=== PATIENT | male | born 1960 | race Caucasian/White ===

== ENCOUNTER 2017-02-25 11:59 | Inpatient (IN) ==
[2017-02-25] MEDS ORDERED: ASPIRIN PO STA (12:01)
[2017-02-25 13:02] LABS: MANUAL DIFF NEEDED? NO
[2017-02-25 13:11] LABS: BASO% 0.8 % (0.0-0.8); EOS# 0.05 X1000 (0.0-0.7); EOS% 0.8 % (0.0-10.0); HEMATOCRIT 44.3 % (42.0-52.0); HEMOGLOBIN 15.4 g/dL (14.0-18.0); IMM GRAN# 0.11 X1000 (0.0-0.04); IMM GRAN% 1.8 % (0.0-0.5); LYMPH# 1.53 X1000 (1.2-3.4); LYMPH% 24.8 % (20.5-51.1); MCH 34.5 PG (27-31); MCHC 34.8 g/dL (33-37); MCV 99.3 FL (81-99); MONO# 0.59 X1000 (0.11-0.59); MONO% 9.6 % (1.7-9.3); MPV 9.9 FL (7.4-10.4); NEUT% 62.2 % (42.2-75.2); PLT 190 X1000 (130-400); RBC 4.46 XMIL (4.7-6.1)
[2017-02-25 13:17] LABS: INR 0.96; PROTIME 10.1 Seconds (9.2-11.7); PTT 25.9 Seconds (22.0-36.0)
[2017-02-25 13:19] LABS: AGAP 13; ALBUMIN 3.8 g/dL (3.5-5.0); ALKALINE PHOSPHATASE 68 U/L (32-122); BUN 8 mg/dL (8-22); CALCIUM 8.4 mg/dL (8.8-10.2); CHLORIDE 98 mmol/L (98-107); CK PROFILE 80 U/L (24-204); COSMO 268; GOT 130 U/L (10-34); GPT 155 U/L (10-44); MAGNESIUM 1.8 mg/dL (1.5-2.7); POTASSIUM 3.9 mmol/L (3.5-5.1); SODIUM 135 mmol/L (136-145); TCO2 24 mmol/L (25-35); TOTAL BILIRUBIN 0.26 mg/dL (0.20-1.00); TOTAL PROTEIN 6.5 g/dL (6.3-8.3)
--- NOTE | 2017-02-25 13:32 | Diag Imaging Result Document ---
PROCEDURE NAME: CHEST-1 VIEW - 02/25/2017 PORTABLE CHEST: COMPARISON: No comparison films. FINDINGS: The lungs are well expanded. The heart is not enlarged. The vessels are not distended. No pneumonia. No pleural effusions identified. IMPRESSION: Negative chest.
[2017-02-25] MEDS ORDERED: SODIUM CHLORIDE 0.9% INJ ONE (13:40)
[2017-02-25] MEDS ORDERED: PROTONIX IV ONE (13:40)
--- NOTE | 2017-02-25 14:06 | EKG Report ---
Test Performed on : 02/25/2017 12:00:56 PM Test Reason : SOB Blood Pressure : / mmHG Vent. Rate : 097 BPM Atrial Rate : 097 BPM P-R Int : 128 ms QRS Dur : 086 ms QT Int : 372 ms P-R-T Axes : 074 019 080 degrees QTc Int : 472 ms Normal sinus rhythm. Normal ECG When compared with ECG of 14-JAN-2014 10:25, premature supraventricular complexes. are no longer present T wave amplitude has increased in Inferior leads Nonspecific T wave abnormality no longer evident in Lateral leads Unconfirmed Result
--- NOTE | 2017-02-25 15:18 | Diag Imaging Result Document ---
PROCEDURE NAME: ANGIOGRAM/PULMONARY ARTERIES - 02/25/2017 CTA CHEST: COMPARISON: None available. FINDINGS: There is a poor pulmonary artery contrast bolus, and there is excessive motion artifact due to respiration at the lower lung zones. This decreases the sensitivity for detecting small pulmonary emboli, especially in the higher order branches at the lung bases. Given this limitation, no definite pulmonary embolism can be identified. There is no evidence of aortic dissection or aneurysm. There is no evidence of significant lymphadenopathy. There appears to be some degree of central bronchial mucosal thickening bilaterally suggesting possible bronchitis. The lungs are grossly clear, otherwise. No airspace consolidations are identified. There is no pleural fluid collection or pneumothorax. Limited views of the upper abdomen reveal diffuse hepatic steatosis. There is a prominent left adrenal mass containing gross fat most compatible with an adrenal myelolipoma. It measures approximately 2.9 x 2.6 cm axially. IMPRESSION: 1. Poor contrast bolus and motion artifact limits sensitivity for detection of small pulmonary emboli. However, no definite filling defects are identified to indicate pulmonary embolism, at least centrally. 2. Suggestion of, perhaps, mild central bronchial mucosal thickening, which can be related to bronchitis. 3. Hepatic steatosis. 4. Prominent fatty mass involving the left adrenal gland most compatible with a myelolipoma.
[2017-02-25 15:40] LABS: CK PROFILE 78 U/L (24-204); LIPASE 70 U/L (13-60)
--- NOTE | 2017-02-25 16:03 | ED EKG INTERP ---
This chart was entered by Sabra Welsh Scribe, acting as scribe for Bridger Ortega MD. EKG Interpretation - EKG Time of EKG reading by physician:: 12:00 EKG Read and Signed by:: Bridger Ortega EKG Interpretation (*Must complete 3 of following elements*): Normal Rate: 97 Rhythm: NSR [place]: normal QRS: normal [place] Interval: normal ST Wave: normal This chart was documented by the indicated scribe, (Sabra Welsh Scribe) and accurately reflects the services I performed and decisions made by me, Bridger Ortega MD, as attested by the provider's signature.
[2017-02-25] MEDS ORDERED: NORCO-10 ONE (17:27)
[2017-02-25] MEDS ORDERED: NORCO-10 PO ONE ×2 (17:27→17:28)
[2017-02-25] MEDS ORDERED: 1/2 NS 1,000 ML IV SCH (18:30)
[2017-02-25] MEDS ORDERED: TYLENOL PO PRN (18:30)
[2017-02-25] MEDS ORDERED: NICODERM PATCH TD PRN (18:44)
[2017-02-25] MEDS ORDERED: ZITHROMAX 500 MG/NS 500 MG/250 ML IVPB IV SCH (18:45)
[2017-02-25] MEDS ORDERED: ZITHROMAX 500 MG/NS 500 MG/250 ML IVPB IV ONE (19:00)
[2017-02-25] MEDS: MORPHINE IV PRN (19:48)
--- NOTE | 2017-02-25 20:10 | HISTORY AND PHYSICAL ---
CHIEF COMPLAINT: Chest pain. HISTORY OF PRESENT ILLNESS: A 56 years old male with a past medical history of uncontrolled hypertension, obesity, came to the emergency department with a chief complaint of chest pain that started today at 1 p.m. He described the chest pain as a pressure-like on the left side of the chest, radiated to the left arm with some numbness. This pain was not related with any kind of physical activity. It was associated with nausea, vomiting, and sweating, he also is complaining of mild headache. This pain is exacerbated with deep inspiration, also this patient states that he has been having cough with yellow phlegm for the past 2 days. He denies fever or chills. This patient will be admitted to rule out any acute coronary event. I will place this patient on antibiotics because probably this patient has bronchitis and I will monitor this patient with telemetry. I will get an echocardiogram, a new EKG and also a stress test. REVIEW OF SYSTEMS: 14 point of review of system were reviewed, all negative except the mention in the HPI. PAST MEDICAL HISTORY: Hypertension, he used to be on hypertensive medication but he stopped it 2 years ago. He does not remember the name of the medication. PAST SURGICAL HISTORY: Left knee surgery and he had a nasal septoplasty with bilateral endoscopic nasal exam with anterior Surgicel pack. SOCIAL HISTORY: He states that he drinks mostly on weekends and sometimes not always and when he drinks he drinks 6-pack beer. He is still smoking about half a pack daily since the age of 21. No drugs. ALLERGIES: No known allergies. BLOOD TRANSFUSION: None. MEDICATIONS: Currently he is not on any medications. PHYSICAL EXAM: VITAL SIGNS: Temperature 98.2 degrees, pulse 84, respiratory rate 16, blood pressure 160/106, O2 saturation 97% on room air. HEENT: Head normocephalic. No trauma. PERRLA. NECK: Supple. No JVD. No masses. Central trachea. CHEST: Clear to auscultation. No wheezing. No rales. CARDIOVASCULAR: RRR. No murmurs. No gallops. No rubs. ABDOMEN: Soft, protuberant , obese, nontender. Positive bowel sounds. EXTREMITIES: The left knee looks larger than the right knee probably related with the previous surgery. No clubbing, no cyanosis, no edema. NEUROLOGICAL EXAM: This patient is alert and oriented x3. No focal neurological deficits. LABORATORY: WBC 6.1, hemoglobin 15.4, hematocrit 44.3, platelets 190,000. D- dimer 1. Sodium 135, potassium 3.9, chloride 98, bicarbonate 24, BUN 8, creatinine 0.7, glucose 92, calcium 8.4, magnesium 1.8, AST 130, ALT 155, alkaline phosphatase 68. Troponins negative x2. Albumin 3.8, lipase 70. ASSESSMENT AND PLAN: 1. Chest pain. We need to rule out an acute coronary syndrome. I will ask for a new EKG in the morning to see if there is any change, also I will continue following the troponins. I will also I asked for an echocardiogram since this patient has been having hypertension for a long time and also will monitor this patient on telemetry. For the chest pain I will add morphine. 2. Bronchitis. We have a CT angiogram done in the emergency department that showed mild central bronchial mucosal thickening that can be related to bronchitis and since this patient also has been complaining of cough with yellowish phlegm for the past 2 days I am going to start treating this patient with azithromycin. 3. Hypertension. I will start this patient on medication probably in the morning. I am not going to use any kind of beta mayra or calcium channel mayra because this patient is going to get a stress test done and he already had a study with contrast so probably I will start this patient on ARIANNA inhibitors in the morning. 4. Anxiety. This patient looks anxious. I will put this patient on Xanax low dose twice a day p.r.n. 5. Obesity. This patient has been about diet and exercise, he needs to loose weight. 6. Nicotine dependence. I will prescribe a nicotine patch. He has been highly advised against cigarette smoking and I will do daily cessation education. cc: Clarke Rincon MD MTDD
[2017-02-25] MEDS: XANAX PO PRN (21:42)
[2017-02-25] MEDS: LOVENOX SUBQ SCH (21:42)
[2017-02-25] MEDS ORDERED: PNEUMOVAX 23 IM ONE (23:22)
[2017-02-26] MEDS: MORPHINE IV PRN ×6 (00:18→21:15)
[2017-02-26] MEDS: ZOFRAN IV PRN ×3 (02:48→17:58)
--- NOTE | 2017-02-26 06:56 | EKG Report ---
Test Performed on : 02/26/2017 06:19:28 AM Test Reason : chest pain Blood Pressure : / mmHG Vent. Rate : 073 BPM Atrial Rate : 073 BPM P-R Int : 140 ms QRS Dur : 090 ms QT Int : 418 ms P-R-T Axes : 061 034 073 degrees QTc Int : 460 ms Normal sinus rhythm. Normal ECG When compared with ECG of 25-FEB-2017 12:00, No significant change was found Confirmed by Indira CUNHA, Luan Martinez ([id number]) on 02/26/2017 5:54:00 PM
[2017-02-26 07:19] LABS: MANUAL DIFF NEEDED? NO
[2017-02-26 07:36] LABS: AGAP 11; ALBUMIN 3.7 g/dL (3.5-5.0); ALKALINE PHOSPHATASE 69 U/L (32-122); BUN 11 mg/dL (8-22); CALCIUM 8.2 mg/dL (8.8-10.2); CHLORIDE 101 mmol/L (98-107); COSMO 278; GOT 79 U/L (10-34); GPT 124 U/L (10-44); POTASSIUM 4.4 mmol/L (3.5-5.1); SODIUM 139 mmol/L (136-145); TCO2 27 mmol/L (25-35); TOTAL BILIRUBIN 0.32 mg/dL (0.20-1.00); TOTAL PROTEIN 6.6 g/dL (6.3-8.3)
[2017-02-26 07:46] LABS: BASO% 0.6 % (0.0-0.8); EOS# 0.06 X1000 (0.0-0.7); EOS% 1.1 % (0.0-10.0); HEMATOCRIT 44.8 % (42.0-52.0); HEMOGLOBIN 15.3 g/dL (14.0-18.0); IMM GRAN# 0.05 X1000 (0.0-0.04); IMM GRAN% 0.9 % (0.0-0.5); LYMPH# 1.53 X1000 (1.2-3.4); LYMPH% 28.8 % (20.5-51.1); MCH 34.2 PG (27-31); MCHC 34.2 g/dL (33-37); MCV 100.2 FL (81-99); MONO# 0.45 X1000 (0.11-0.59); MONO% 8.5 % (1.7-9.3); MPV 10.2 FL (7.4-10.4); NEUT% 60.1 % (42.2-75.2); PLT 180 X1000 (130-400); RBC 4.47 XMIL (4.7-6.1)
[2017-02-26] MEDS: XANAX PO PRN (13:00)
--- NOTE | 2017-02-26 15:46 | PROGRESS NOTE ---
DATE: 02/26/2017 SUBJECTIVE: This patient states that he has been having chest pain, but compared with yesterday he feels a little bit better. He is still coughing, and every time he coughs, yellow phlegm is coming up. He denies nausea, vomiting. No diarrhea, no constipation. No fever. No chills. OBJECTIVE: Vital Signs: Temperature 98.1 degrees, pulse 80, blood pressure 158/108, O2 saturation 98% on room air. HEENT: Head normocephalic. No trauma. PERRLA. Neck: Supple. No JVD. No masses. Central trachea. Chest: Clear to auscultation. No wheezing. No rales. Cardiovascular: Regular rhythm and rate. No murmurs. Abdomen: Soft, obese, nontender, nondistended. No hepatosplenomegaly. Extremities: No edema. No clubbing. No cyanosis. Neurological: The patient is alert and oriented x3. No focal neurological deficits. He looks anxious. LABORATORY: WBC 5.3, hemoglobin 15.3, hematocrit 44.8, platelet 180,000. Sodium 139, potassium 4.4, chloride 101. Bicarbonate 27, BUN 11, creatinine 0.8, glucose 115. Calcium 8.2, troponins negative x3. ASSESSMENT AND PLAN: 1. Chest pain. He is still having some chest pain. Sometimes upon palpation, but it is sometimes diffuse. Today he had an echocardiogram and the results are pending. Tomorrow he will get a stress test and if this is negative, I will send this patient home with pain medication and antibiotics. 2. Bronchitis. I will continue with azithromycin/ he is still coughing and having yellow phlegm. We will continue with the same management for now. 3. Hypertension. I will continue to monitor the blood pressure. I do not want to use any kind of beta mayra or calcium channel mayra for now because this patient is getting a stress test done tomorrow. 4. Anxiety. This patient is still looking anxious. I put this patient on Xanax low dose twice a day already. 5. Obesity. This patient has been advised about diet and exercise. He needs to lose some weight. 6. Nicotine dependence. This patient has been highly advised against cigarette smoking, and I will continue with daily cessation education. cc: Clarke Rincon MD
[2017-02-26] MEDS: ZITHROMAX 500 MG/NS 500 MG/250 ML IVPB IV SCH ×2 (17:58→18:14)
[2017-02-26] MEDS: LOVENOX SUBQ SCH (17:58)
--- NOTE | 2017-02-26 18:22 | Extremity Venous Study ---
PROCEDURE NAME: Venous U/S Bilateral Legs - 02/25/2017 This is the bilateral lower extremity venous duplex, and color flow imaging study using the iStorezid E 9 ultrasound System with a 9 L-D transducer. REFERRING PHYSICIAN: Dr. Dobbs from the Emergency Department. A 56-year-old male. MAINTENANCE REPRESENTATIVE: Irma Lai RVT. INDICATIONS: 1. Elevated D-dimer, ICD 10 R94.2. 2. Swelling of the limb, M79.89. FINDINGS: Right common femoral vein and its branches, deep and superficial femoral veins were satisfactorily imaged. They had flow through them and were compressible. Right popliteal vein and the deep veins of the right knee were all compressible and had flow through them. The superficial veins of the right lower extremity were compressible throughout their length. The left common femoral vein and its branches, deep and superficial femoral veins were also satisfactorily imaged. They had flow through them and were compressible. Left popliteal vein and the deep veins below the left knee were all compressible and had flow through them. The superficial veins of the left lower extremity were compressible throughout their length. INTERPRETATION: No evidence of acute deep or superficial venous thrombosis of the bilateral lower extremities. cc: Poornima Nevarez MD
[2017-02-26] MEDS ORDERED: NS 250 ML ONE (18:58)
--- NOTE | 2017-02-26 20:48 | ECHO REPORT ---
ORDER DATE: 02/25/2017 MEASUREMENTS: Septal thickness 1.1. Posterior wall thickness 1.1. Left atrium 3.8. SUMMARY: 1. Technically difficult study due to limited acoustic inequality in this obese patient. Intravenous echo contrast agent Definity was utilized to enhance endocardial definition for assessment of left ventricular systolic function and left ventricular wall motion. 2. The aortic valve is trileaflet and without gross structural abnormality. The aortic valve appears to open normally and peak gradient across the aortic valve by Doppler is less than 10 mmHg. Mitral and tricuspid valves are without gross structural abnormality. Pulmonic valve was not well demonstrated. The aortic root is normal in size. 3. Normal left ventricular dimensions suggested. Estimated left ejection fraction approximately 65%. No regional wall motion abnormality is evident. Doppler suggests grade 1 left ventricular diastolic dysfunction. Left atrium appears mildly enlarged. Right atrium and right ventricle are of normal size with grossly preserved right ventricular systolic performance. 4. No pericardial effusion. 5. Appearance of inferior vena cava suggesting normal central venous pressure. CONCLUSIONS: 1. Technically difficult study. 2. No significant valvular abnormality. 3. Normal left ventricular systolic function without wall motion abnormality evident. 4. Grade 1 left ventricular diastolic dysfunction. 5. Mild left atrial enlargement. cc: MD Clarke Barragan MD
[2017-02-27] MEDS: MORPHINE IV PRN ×6 (01:29→22:54)
[2017-02-27 07:13] LABS: MANUAL DIFF NEEDED? NO
[2017-02-27 07:18] LABS: BASO% 0.2 % (0.0-0.8); EOS# 0.05 X1000 (0.0-0.7); HEMOGLOBIN 14.5 g/dL (14.0-18.0); IMM GRAN# 0.04 X1000 (0.0-0.04); IMM GRAN% 0.8 % (0.0-0.5); LYMPH# 1.32 X1000 (1.2-3.4); LYMPH% 27.2 % (20.5-51.1); MCH 33.6 PG (27-31); MCHC 33.7 g/dL (33-37); MCV 99.8 FL (81-99); MONO# 0.44 X1000 (0.11-0.59); MONO% 9.1 % (1.7-9.3); MPV 10.1 FL (7.4-10.4); NEUT% 61.7 % (42.2-75.2); PLT 153 X1000 (130-400); RBC 4.31 XMIL (4.7-6.1)
[2017-02-27 07:39] LABS: AGAP 11; BUN 12 mg/dL (8-22); CALCIUM 8.5 mg/dL (8.8-10.2); CHLORIDE 102 mmol/L (98-107); COSMO 281; POTASSIUM 4.4 mmol/L (3.5-5.1); SODIUM 141 mmol/L (136-145); TCO2 28 mmol/L (25-35)
[2017-02-27] MEDS ORDERED: LEXISCAN ONE (07:55)
[2017-02-27] MEDS: DUONEB (A & A) INH SCH ×3 (10:13→20:25)
[2017-02-27] MEDS: TESSALON PO PRN (10:26)
[2017-02-27] MEDS: ROCEPHIN 1 GM/NS 1 GM/50 ML IVPB IV SCH (10:26)
[2017-02-27] MEDS: ZOFRAN IV PRN ×2 (10:27→14:51)
--- NOTE | 2017-02-27 15:24 | PROGRESS NOTE ---
DATE: 02/27/2017 SUBJECTIVE: This patient states that he is feeling better, he is not complaining today of chest pain, he is still coughing with yellow phlegm. He denies nausea, vomiting. No diarrhea, no constipation. No fever. No chills. OBJECTIVE: Vital Signs: Temperature 98 degrees, pulse 74, respiratory rate 18, blood pressure 134/90, oxygen saturation 97% 2 L of nasal cannula. HEENT: Head normocephalic. No trauma. PERRLA. Neck: Supple. No JVD. No masses. Central trachea. Chest: Clear to auscultation. No wheezing. No rales. Cardiovascular: RRR. No murmurs. Abdomen: Soft, nontender, nondistended. No hepatosplenomegaly. Extremities: No edema. No clubbing. No cyanosis. Neurological: The patient is alert and oriented x3. No focal neurological deficits. LABORATORY: WBC 4.8, hemoglobin 14.5, hematocrit 43, platelets 153,000. Sodium 141, potassium 4.4, chloride 102, bicarbonate 28, BUN 12, creatinine 0.7, glucose 94, calcium 8.5. ASSESSMENT AND PLAN: 1. Chest pain. This patient is not complaining today of chest pain. His echocardiogram is pretty much unremarkable, and pending the results of the stress test. 2. Bronchitis. He has been on azithromycin and I will add ceftriaxone today, also Tessalon for his cough. 3. Hypertension. I added today a blood pressure medication, carvedilol 3.125 mg b.i.d., and the blood pressure is much better now. We will continue to monitor. 4. Anxiety. This patient looks less anxious today. I will continue with Xanax low dose twice a day p.r.n. 5. Obesity. This patient has been advised about diet and exercise. He needs to lose some weight. 6. Nicotine dependence. This patient has been highly advised against smoking cigarettes, and I will continue daily cessation education. cc: Clarke Rincon MD
--- NOTE | 2017-02-27 15:57 | Diag Imaging Result Document ---
PROCEDURE NAME: MYOCARDIAL PERF SCAN, STR/REST - 02/25/2017 HISTORY: [id number]-old male. PROCEDURE: Rest/stress Lexiscan myocardial perfusion study. REQUESTING DOCTOR: Hospitalist, Dr. Banks. REASON FOR STUDY: Evaluation of chest pain. DESCRIPTION: The patient came into the nuclear lab, received a rest injection of technetium-99 sestamibi 14.8 mCi. Multiple tomographic views of the cardiac structure were obtained at rest. Subsequently patient underwent infusion of Lexiscan 0.4 mg per protocol. At peak infusion, the patient was injected with technetium-99 sestamibi 44.2 mCi. Multiple tomographic views of the cardiac structure were obtained following the protocol. SUMMARY OF THE ELECTROCARDIOGRAPHIC PORTION OF THE STUDY: Resting electrocardiogram shows sinus rhythm, rate 69 beats per minute. Resting ECG looks normal. Resting blood pressure is 169/111. During infusion of Lexiscan, the heart rate increased to a maximum of 105 beats per minute. Blood pressure dropped to 136/89. Patient reported no chest pain, shortness of breath, or palpitations. The ECG showed no changes. Following the completion of infusion, the heart rate and blood pressure returned back to baseline. SUMMARY: Electrocardiographic response to infusion of Lexiscan is deemed to be normal. SUMMARY OF MYOCARDIAL PERFUSION PORTION OF THE STUDY: Poststress tomographic views of left ventricle showed a very trivial apical defect that is very focal, mild in severity. In addition, there is a basal inferior wall defect that is also relatively focal, mild to moderate in severity. The rest images showed the same finding. There is a fixed focal apical anterior wall defect as well as a focal fixed basal inferior wall defect. This is very consistent with diaphragmatic attenuation. The polar plots revealed the same. There is no evidence of either inducible ischemia or definite indication of scar. I suspect attenuation artifact involving the apical inferior and basal inferior wall. The gated SPECT shows normal left ventricular systolic, ejection fraction 61%, with generous ventricular volumes. No wall motion abnormality. The MyoMetrix protocol shows essentially similar ejection fraction 62% with generous volumes. No wall motion abnormality. The lung/heart ratio is slightly elevated. The TID is normal. SUMMARY: This study showed: 1. Unremarkable electrocardiographic response to infusion of Lexiscan. 2. Probably normal poststress myocardial perfusion scan. There is no scintigraphic evidence of pharmacologically induced myocardial ischemia utilizing Lexiscan protocol. 3. The focal fixed apical anterior and basal inferior defect probably represent diaphragmatic attenuation artifact. No ischemia is noted. 4. Well-preserved left ventricular systolic function, ejection fraction of 61% to 62% with generous ventricular volumes. No wall motion abnormality. 5. This study represents low risk for ischemic events. Clinical correlation recommended. cc: MD Clarke Dalton MD
[2017-02-27] MEDS: LOVENOX SUBQ SCH (18:28)
[2017-02-27] MEDS: ZITHROMAX 500 MG/NS 500 MG/250 ML IVPB IV SCH (18:28)
[2017-02-27] MEDS: XANAX PO PRN (20:13)
[2017-02-27] MEDS ORDERED: COREG PO SCH (21:00)
[2017-02-28] MEDS: TESSALON PO PRN (01:15)
[2017-02-28] MEDS: MORPHINE IV PRN ×2 (03:37→09:50)
[2017-02-28] MEDS: DUONEB (A & A) INH SCH ×2 (03:40→09:02)
[2017-02-28 07:24] VITALS: BP 142/92
[2017-02-28] MEDS: ROCEPHIN 1 GM/NS 1 GM/50 ML IVPB IV SCH ×2 (08:44→11:23)
[2017-02-28] MEDS ORDERED: NS 250 ML ONE (08:51)
[2017-02-28] MEDS ORDERED: COREG PO SCH (09:00)
[2017-02-28] MEDS ORDERED: MOTRIN PO PRN (09:34)
[2017-02-28] MEDS ORDERED: ZITHROMAX PO SCH (18:00)
--- NOTE | 2017-02-28 22:25 | DISCHARGE SUMMARY ---
ADMISSION DATE: 02/25/2017 DISCHARGE DATE: 02/28/2017 CONSULTATIONS: None. PERTINENT PROCEDURES: 1. Pulmonary arteriogram showed poor contrast bolus, motion artifact, sensitivity for detection of small pulmonary emboli, however, no definite filling defects are identified to indicate pulmonary embolism. Suggestive perhaps of mild central bronchial mucosal thickening which could act as bronchitis, hepatic steatosis, prominent fatty liver mass involving the left adrenal gland compatible with myelolipoma. 2. Bilateral lower extremity Dopplers. No evidence of acute or superficial venous thrombosis. 3. Perfusion scan was unremarkable. 4. Echocardiogram showed normal LV systolic function without wall motion abnormality, grade 1 ventricular diastolic dysfunction, mild left atrial enlargement. DISCHARGE DIAGNOSES: 1. Chest pain. Cardiac enzymes remain negative. Echocardiogram was unremarkable as well as stress test. 2. Bronchitis. Continue with p.o. antibiotics, Tessalon Perles. 3. Hypertension. Continue with Coreg. 4. Anxiety stable. 5. Obesity. Patient has been educated on diet and exercise as well as weight loss. 6. Nicotine dependence. The patient has been educated on smoking cessation as well as the means to quit. HOSPITAL COURSE: Mr. Barraza is a 56-year-old male with a past medical history of uncontrolled hypertension, obesity who came to the ED with a chief complaint of chest pain that started at 1 p.m. on the day of his admission. It was described as pressure-like on the left side radiating to the left arm with some numbness. The pain was not related to any type of physical activity. It is associated with nausea, vomiting, diaphoresis and mild headache. Pain exacerbated with deep inspiration. The patient has been having a cough with yellow phlegm for the past 2 days. No fever. No chills. The patient was admitted for chest pain. He was ruled out with serial cardiac enzymes as well as stress test and echocardiogram. For his bronchitis he was started on IV antibiotics as well as Tessalon Perles and aggressive pulmonary tolerant. He was added Coreg for his hypertension. He was educated on his obesity for diet and exercise, and weight loss as well as his nicotine dependence. Highly advised against cigarette smoking as well as daily cessation education. Patient is being discharged home today. VITAL SIGNS ON DISCHARGE: Temperature is 97.7 degrees, heart rate 76, respirations 20, blood pressure is 142/92, O2 is 98% on room air. DISCHARGE DIET: Healthy heart. DISCHARGE MEDICATIONS: 1. Zithromax 250 mg p.o. daily for 5 days. 2. Tessalon Perles 100 mg p.o. t.i.d. p.r.n. 3. Coreg 6.25 mg p.o. b.i.d. 4. Motrin 400 mg p.o. q.6 hours p.r.n. FOLLOWUP: 1. Patient is being discharged home. 2. He will need to follow up with a primary care physician from a list that they provided to him. 3. He will need to continue oral antibiotics. 4. Patient can return to the ED for any worsening of symptoms. DISCHARGE TIME: 30 minutes. Dictated by AMARIS Herrera for Clarke Rincon MD cc: Clarke Rincon MD MTDD
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
== END 2017-02-28 12:18 | disposition home or self-care (01) ==
LOC: ED 11:59 → SUATTDRO 19:10 → EDIPHOLD 19:10 → 3N 21:04
PROVIDERS: ATTEND Internal Medicine